=== PATIENT | male | born 2000 | race Caucasian/White ===

== ENCOUNTER 2024-01-31 03:10 | Outpatient (CLI) | payer OTHER, SELFPAY ==
[2024-01-31 13:32] LABS: Lithium 0.6 mmol/L (0.6-1.2)
== END 2024-01-31 03:11 | disposition home or self-care (01) ==
LOC: LBO 03:10
PROVIDERS: PCP Family Medicine; Referring Provider Family Medicine; Visit Provider Family Medicine
DX: F31.9 Bipolar disorder, unspecified (principal)
CPT/HCPCS: 36415; 80178

== ENCOUNTER 2025-02-03 13:21 | Outpatient (CLI) | payer OTHER, SELFPAY ==
[2025-02-03 12:19] LABS: HCT 40.8 % (40.0-50.0); HGB 13.5 g/dL (13.5-17.5)
== END 2025-02-03 13:22 | disposition home or self-care (01) ==
LOC: LBO 13:21
PROVIDERS: PCP Family Medicine; Visit Provider Internal Medicine Endocrinology, Diabetes & Metabolism
DX: Z78.9 Other specified health status (principal)
CPT/HCPCS: 36415; 85014; 85018